=== PATIENT | female | born 1935 | race Caucasian/White ===

== ENCOUNTER 2022-02-09 11:36 | Emergency (ER) | payer OTHER, SELFPAY ==
[2022-02-09 11:39] VITALS: PULSE 60; O2SAT 80
--- NOTE | 2022-02-09 11:44 | PC.NURSE ---
Per EMS, pt called 911. Observation per EMS is pt is having a CHF exacerbation or in flash pulmonary edema. Allowed EMS to obtain BP which was 215/105 and HR 120. Pt refusing ALL treatment upon entrance to ED. Pt refusing MD assessment--will not allow Dr Espinoza to listen to heart or lungs, IV, Labs, medications, cardiac monitoring, vitals to be taken. Pt states I want to . Dr Espinoza in room as well as multiple RN's as witnesses. Pt filling out POLST form at bedside for DNR. Pt allowed MD to obtain O2 sat which was 78% and then removed the probe and refusing oxygen. Allowing blow by oxygen with extension tubing. Pt reports she has no children and no family. pt has 1 support person in room. Pt made aware if she changes her mind at any time, full treatment can be provided. Pt moved from trauma 1 to RM 13. Continues to have blow by oxygen available if wanted.
--- NOTE | 2022-02-09 13:02 | PC.NURSE ---
Pt refusing to sign consent to treat.
--- NOTE | 2022-02-09 13:39 | PC.NURSE ---
pt asking for jello and pudding. given. pt allowed RN to place nasal cannula for oxygen while she eats.
--- NOTE | 2022-02-09 14:18 | PC.NURSE ---
LEIDY Rasheed in room for consult.
--- NOTE | 2022-02-09 15:41 | CM.SWNOTE ---
ED SW Note Pt is 86 year old female that presented via EMS. Observation per EMS is pt is having a CHF exacerbation or in flash pulmonary edema. Allowed EMS to obtain BP which was 215/105 and HR 120. Pt refusing ALL treatment upon entrance to ED. Pt refusing MD assessment--will not allow Dr Espinoza to listen to heart or lungs, IV, Labs, medications, cardiac monitoring, vitals to be taken. SW met with pt to discuss her desire for her hospital stay. Pt was tangential at times and labored breathing caused difficulty with communication. Pt and friend/roommate Royce are at bedside. Pt explains that she wants to stay alive to see the end of Royce's divorce settlement, as she is concerned that his ex- is going to cause harm. SW redirects pt as she goes into convoluted history of how she met Royce and how he is going through a difficult divorce. SW explains that she cannot help Royce but wants to know why the patient is in the hospital and what patient wants to happen with her care. Pt reports that she knows what is wrong with her but will not expand on what that is, other than old age. Pt reports mistrust in medical system, referring to disbelief in covid or vaccines. Pt very tangential and cannot explain to SW what she would like, other than that she wants to stay alive to help Royce. Pt explores various options such as home oxygen and home hospice but pt will not commit to plan. SW discusses conversation with ED Provider, who will assess capacity and see if pt is willing to accept medical treatment. Discussion of consulting ethics if needed. LEIDY Long
[2022-02-09 16:17] VITALS: BP 120/58; PULSE 98; O2SAT 96
--- NOTE | 2022-02-09 17:10 | ED_ITS ---
HPI - SOB/Dyspnea <Maria A Valle DO - Last Filed: 02/10/22 18:42> General Chief Complaint: Shortness of Breath/Dyspnea Stated Complaint: Flash pulm edema Time Seen by Provider: 02/09/22 11:37 Source: patient and EMS Mode of arrival: EMS Limitations: altered mental status History of Present Illness HPI Narrative: Patient is an 86-year-old female who presents with sudden-onset shortness of breath. She called 911 for help but refused EMS to do anything. Hypoxic with obvious rales and difficulty breathing. Upon my evaluation she did not let me listen to her lungs. She did not want anything done. She states that she is old and does not want to live. Multiple conversations with patient and close friend at bedside. She states that her at this hospital many years ago. She is adamant that she does not want any medications she is adamant that she does not want anything done for her. Difficult to get history out of her. She is awake and alert and seems to be answering questions mostly appropriately. She appears to have capacity. She is fully aware that have I do not intervene she may . She continues to refuse care. Hands are cool to touch. EMS initially reported hypertensive with blood pressure in the to 15th and hypoxia. Review of Systems <Maria A Valle DO - Last Filed: 02/10/22 18:42> Review of Systems Narrative: See HPI Patient History <Maria A Valle DO - Last Filed: 02/10/22 18:42> Social History Smoking Status: Unknown if ever smoked Smoking Status: Unknown if ever smoked alcohol intake frequency: other Substance Use Type: unknown Exam <Maria A Valle DO - Last Filed: 02/10/22 18:42> Initial Vital Signs Initial Vital Signs: Vital Signs Pulse Rate 60 02/09/22 11:39 Pulse Oximetry 80 L 02/09/22 11:39 Oxygen Delivery Method 02/09/22 11:39 GENERAL: Alert thin 86-year-old female HEENT: Head atraumatic,EOMI, pupils reactive, face symmetric, mucous membranes CARDIOVASCULAR: Regular rate and rhythm without murmurs, rubs or gallops. RESPIRATORY: Audible rales mild tachypnea speaks in full sentences without significant difficulty ABDOMEN: Soft, nontender. Normoactive bowel sounds all 4 quadrants. No guarding or rebound. EXTREMITIES: Normal range of motion, no clubbing or edema. Neurovascularly intact NEUROLOGICAL: Alert and oriented x4. SKIN: Warm, dry, no laceration, no petechiae, no rashes or lesions. <Breezy Puentes MD - Last Filed: 02/11/22 06:29> Initial Vital Signs Initial Vital Signs: Vital Signs Pulse Rate 60 02/09/22 11:39 Pulse Oximetry 80 L 02/09/22 11:39 Oxygen Delivery Method 02/09/22 11:39 Course <Maria A Valle DO - Last Filed: 02/10/22 18:42> Orders Ordered: ED Orders 02/09/22 16:28 Evaluate for home oxygen NOW Vital Signs Vital signs: Vital Signs - 8 hr 02/10/22 11:33 Pulse Rate 91 H Respiratory Rate 22 Blood Pressure 151/66 H Pulse Oximetry 92 Oxygen Delivery Method Nasal Cannula Oxygen Flow Rate 2 <Breezy Puentes MD - Last Filed: 02/11/22 06:29> Course Course Narrative: February 09, 2022 at 7:[address] Valle, patient was set up to go home by BLS. However patient did desat 75 % rm air with rales. Patient has been seen earlier and was made DNR DNI with comfort measures only. Patient refused any treatment or medications or IV access. Pulse form is completed. Patient does not want any family or friends contacted. At this time will have to keep patient here overnight. February 10, 2022 at 7:00 a.m.. No new issues or course of night. Patient still unable to get ride back to home. Orders Ordered: ED Orders 02/09/22 16:28 Evaluate for home oxygen NOW Vital Signs Vital signs: Vital Signs - 8 hr 02/10/22 11:33 Pulse Rate 91 H Respiratory Rate 22 Blood Pressure 151/66 H Pulse Oximetry 92 Oxygen Delivery Method Nasal Cannula Oxygen Flow Rate 2 MDM - SOB/Dyspnea <Maria A Valle DO - Last Filed: 02/10/22 18:42> MDM Narrative Medical decision making narrative: Multiple witnesses multiple conversations with patient. POLST form is filled out DNR comfort measures only. She is finally agreeable to a nasal cannula previous she leaves she only wanted blow-by oxygen. She is offered numerous times to have workup and decide if she wants intervention. She continues to refuse. Her breathing actually has improved while in the emergency department. She is actually been able to come off oxygen. Social work has been involved. I have spoken with Dr. Jackson about the situation in regards to treatment. Patient does seem to have capacity. Agrees that if patient does not want anything to be done than nothing should be done and patient may be discharged She is not currently hypoxic, she is breathing easier. She understands that if she goes home she may . This has been made clear to her she is able to verbally repeat it back to me. She no longer requires home oxygen. Attempted to get home health for her as well. The patient is clinically sober, free from distracting injury, appears to have intact insight, judgment and reason. Does not meet criteria for involuntary hospitalization. Patient has the capacity to make decisions. The patient is also not under any duress to leave the hospital. In this scenario, it would be battery to subject the patient to treatment against his/her will. I have voiced my concerns for the patient's health given that a full evaluation and treatment had not occurred. I have discussed the need for continued evaluation to determine if there symptoms are caused by a condition that present risk of or morbidity. Risk including but not limited to , permanent disability, prolonged hospitalization, prolonged illness, were discussed. I tried offering alternative options in hopes that the patient might be amenable to partial evaluation and treatment which would be medically beneficial to the patient, though the patient declined my options and insisted on leaving. Because I have been unable to convince the patient to stay I answered all of their questions about the condition and ask them to return to the ED as soon as possible to complete their evaluation, especially if their symptoms worsen or do not improve. I asked the patient to return if they change their mind about the further evaluation and treatment. I strongly encouraged the patient to return to this emergency department or any emergency department at any time, particularly with worsening symptoms. After making arrangements for patient to go home she suddenly developed increas ing shortness of breath and tachypnea similar to her initial presentation. She now is requiring 4-5 L of oxygen her room air O2 sat is 84%. Again I have offered workup and to help her ease of breathing. At this time she continues to decline. Fortunately at this time of night home oxygen is no longer available. Arrangements will need to be made tomorrow. Patient is comfortable asking for more Jell-O and would like to go outside because she thinks that may help her breathing. Signed out Dr. Brennick. valle- Patient evaluated by myself this morning. She continues to require about 5 L nasal cannula. Has coarse breath sounds audibly. She is again offered workup and intervention in the emergency department. She again declines. She would like home oxygen and to go home. She has been nonambulatory for a long time. She is offered home health care which she declines. She states that to use the restroom she has a bucket. She does have somebody in the room who stayed with her all night and lives with her at home . Respiratory has made arrangements for her to receive home oxygen at home. Bls was transported back. Discharge Plan Departure Patient Disposition: Home Clinical Impression: Dyspnea Instructions: DI for Shortness of Breath Activity Restrictions/Additional Instructions: *You have been diagnosed with shortness of breath *What to do: I have no explanation for your shortness of breath. At this time you did not want any care intervention or treatment. Your welcome at any time to change her mind and return to the emergency department for treatment. At this time you no longer require home oxygen *Continue to take medications as directed *Follow up with your primary care provider in 2-3 days or call [phone] *Return to ER if you should have any new, worsening or concerning symptoms Visit Report Forms: Patient Portal/API
[2022-02-09 19:57] VITALS: BP 121/59; PULSE 99; O2SAT 96
--- NOTE | 2022-02-09 22:00 | PC.NURSE ---
Report received - assumed care of pt at this time - sitting on bed in NAD - no needs voiced - PWD
--- NOTE | 2022-02-09 23:00 | PC.NURSE ---
Awake - sitting on the bed in NAD - no needs voiced - PWD with respirations equal and unlabored bilaterally
[2022-02-09 23:22] VITALS: BP 123/70; PULSE 95; O2SAT 96
--- NOTE | 2022-02-10 | PC.NURSE ---
No changes in pt status at this time
--- NOTE | 2022-02-10 01:00 | PC.NURSE ---
No changes in pt status at this time
--- NOTE | 2022-02-10 02:00 | PC.NURSE ---
No changes in pt status at this time
--- NOTE | 2022-02-10 03:00 | PC.NURSE ---
No changes in pt status at this time
--- NOTE | 2022-02-10 04:00 | PC.NURSE ---
No changes in pt status at this time - no changes in assessment - awaiting the AM to be able to be set up with home O2
--- NOTE | 2022-02-10 05:00 | PC.NURSE ---
No changes at this time
--- NOTE | 2022-02-10 06:00 | PC.NURSE ---
No changes in pt status at this time
--- NOTE | 2022-02-10 07:00 | PC.NURSE ---
No changes in pt status
[2022-02-10 07:30] VITALS: BP 118/76; PULSE 90; RESP 28; O2SAT 95
--- NOTE | 2022-02-10 08:00 | PC.NURSE ---
RT at bedside
[2022-02-10 08:30] VITALS: BP 122/67; PULSE 95; RESP 24; O2SAT 94
--- NOTE | 2022-02-10 09:14 | PC.NURSE ---
report given to dayshift RN team - care relinquished at this time
[2022-02-10 09:30] VITALS: BP 112/75; PULSE 90; RESP 20; O2SAT 94
[2022-02-10 10:30] VITALS: O2SAT 87
[2022-02-10 10:37] VITALS: BP 118/78; PULSE 90; RESP 22; O2SAT 92
[2022-02-10 11:33] VITALS: BP 151/66; PULSE 91; RESP 22; O2SAT 92
--- NOTE | 2022-02-10 11:58 | PC.NURSE ---
Report given to Kannan AARON with [facility] transport.
== END 2022-02-10 12:05 | disposition home or self-care (01) ==
PROVIDERS: Emergency Provider Emergency Medicine
DX: R06.00 Dyspnea, unspecified (principal)
CPT/HCPCS: 99284

== ENCOUNTER 2022-02-17 22:24 | Emergency (ER) | payer OTHER, SELFPAY ==
[2022-02-17 22:27] VITALS: BP 153/66; PULSE 107
[2022-02-17 22:30] VITALS: BP 153/66; PULSE 102; PULSE 107; RESP 20; TEMP 35.7; O2SAT 89; O2SAT 95
--- NOTE | 2022-02-17 22:34 | ED.GENADULT ---
HPI - General Adult General Chief complaint: Shortness of Breath/Dyspnea Stated complaint: SOB and refusing all tx Time Seen by Provider: 02/17/22 22:33 Source: patient Mode of arrival: EMS Limitations: no limitations History of Present Illness HPI narrative: 86-year-old female who arrives by EMS for evaluation of shortness of breath. She contacted EMS because her baseline shortness of breath worsened earlier this evening. She was refusing all treatment by EMS prior to arrival. She was seen here in the emergency department several days ago for shortness of breath. During that visit she was refusing all treatment in the emergency department. Was seen by social work. Was eventually discharged home. She is a DNR/DNI with comfort measures only. She has a signed PLOST form with her. According to the patient she states that she got anxious earlier this evening. Unsure as to why this happened she will not tell me. She is somewhat tangential in answering questions. There is a journeyman glazier at bedside who really can not provide much information either. She denies any chest pain. She states she does feel better. She keeps asking for water. She states she needs ?cool air? patient did allow triage vitals but did not want the blood pressure cuff on. Review of Systems Constitutional Constitutional: Denies fever(s) Cardiovascular Cardiovascular: Denies chest pain and Reports dyspnea Respiratory Respiratory: Reports dyspnea Hematologic/Lymphatic On Anticoagulants: No Patient History Social History Smoking Status: Unknown if ever smoked Smoking Status: Unknown if ever smoked alcohol intake frequency: other Substance Use Type: unknown Exam Initial Vital Signs Initial Vital Signs: Vital Signs Pulse Rate 107 H 02/17/22 22:27 Blood Pressure 153/66 H 02/17/22 22:27 Const General: disheveled and No ill appearing HENMT Head: normal to inspection and normocephalic Resp Effort & Inspection: labored and tachypneic Auscultation: rhonchi Cardio Rate: regular rate Rhythm: regular rhythm Skin General: no rashes or lesions noted Neuro General: patient alert and patient awake Extrem General: capillary refill normal Course Orders Ordered: ED Orders 02/18/22 01:41 Consult to KNOWLEDGE MANAGEMENT ADVISOR - Methods Study Analyst Stat Vital Signs Vital signs: Vital Signs - 8 hr 02/17/22 22:30 02/17/22 22:27 02/17/22 22:27 Temperature 96.2 F L Pulse Rate 107 H 107 H Respiratory Rate 20 Blood Pressure 153/66 H 153/66 H Pulse Oximetry 89 L Oxygen Delivery Method Room Air Oxygen Flow Rate 02/17/22 22:30 02/17/22 23:00 02/17/22 23:30 Temperature Pulse Rate 102 H 96 H 97 H Respiratory Rate Blood Pressure Pulse Oximetry 95 96 Oxygen Delivery Method Nasal Cannula Nasal Cannula Oxygen Flow Rate 3 3 02/18/22 00:00 02/18/22 00:30 02/18/22 01:00 Temperature Pulse Rate 93 H 96 H 97 H Respiratory Rate Blood Pressure Pulse Oximetry 90 L 90 L 93 Oxygen Delivery Method Oxygen Flow Rate 02/18/22 01:30 Temperature Pulse Rate 81 Respiratory Rate Blood Pressure Pulse Oximetry 89 L Oxygen Delivery Method Oxygen Flow Rate Medical Decision Making MDM Narrative Medical decision making narrative: Patient did allow oxygen by nasal cannula however on room air she had oxygen saturations in the low 90s. Patient declined any further treatment here in the ER. She stated that she wanted some water and some ?cool fresh air? there is obviously an anxiety component although she did not want any anxiety medication. Her journeyman glazier was at bedside and he stated that the patient does have an oxygen tank at home however the patient declined to use the oxygen. I did review her prior notes and her refusal treatment today seems very similar to before. I do feel that she has capacity to make decisions. She is alert oriented and not clinically intoxicated. There is no signs of trauma. After multiple attempts to ask the patient if there was more that I can provide for her in the emergency department she kept responding with ?I need cool fresh air?. Her family did arrive at bedside. It was her sister and [id number]. They live in [place]. They have not seen the patient in 10 years. There appears to be nothing more than I can provide for the patient as she has no specific request. She has oxygen at home that she can use as needed for any shortness of breath. She did not want any blood drawn. Patient stated that she would like to go home. She was having some fairly significant shortness of breath and I offered to keep her in the emergency department for social work consultation tomorrow and also to make her comfortable but she declined this as well. Will discharge patient back to home. Discharge Plan Departure Patient Disposition: Home Clinical Impression: Dyspnea Instructions: DI for Shortness of Breath Activity Restrictions/Additional Instructions: I recommend that you use the oxygen that you have at home for any issues with shortness of breath. Contact your primary doctor for a follow-up. Return to the emergency department for any new symptoms Visit Report Forms: Patient Portal/API
[2022-02-17 23:00] VITALS: PULSE 96
[2022-02-17 23:30] VITALS: PULSE 97; O2SAT 96
--- NOTE | 2022-02-17 23:50 | PC.NURSE ---
Patient complained of dry mouth and lips. Chap stick and lemon glycerin swabs provided to patient for comfort.
[2022-02-18] VITALS: PULSE 93; O2SAT 90
[2022-02-18 00:30] VITALS: PULSE 96; O2SAT 90
[2022-02-18 01:00] VITALS: PULSE 97; O2SAT 93
[2022-02-18 01:30] VITALS: PULSE 81; O2SAT 89
--- NOTE | 2022-02-18 02:11 | PC.NURSE ---
Pt refused detailed assessment, pt refused labs and IV placement, family in to see patient and wanted pt to remain in the ED overnight, Pt stated that she wants to go home. Family has not seen the pt in over 10 years, the sister, [id number] and their adult son came to the ED. Pt has had a friend at the bedside along with family. The friend seems familiar with pt health history and recent ED visits. Pt is bed bound, transport time called to take pt home.
--- NOTE | 2022-02-18 02:19 | PC.NURSE ---
Pt asking to go home. Dr Alston offered to allow pt to stay overnight in ED and pt refusing. Family at bedside and have not seen pt in over 10 years. Pt does not want cardiac monitoring or SPO2 or BP cuff on. DNR and persistent about declining treatment. ETA BLS [id number].
== END 2022-02-18 03:00 | disposition home or self-care (01) ==
PROVIDERS: Emergency Provider Emergency Medicine
DX: R06.00 Dyspnea, unspecified (principal)
CPT/HCPCS: 99284